=== PATIENT | male | born 1960 | race Caucasian/White ===

== ENCOUNTER 2019-11-07 11:39 | Outpatient (CLI) | payer OTHER, SELFPAY ==
[2019-11-07 13:16] LABS: Add Urine Microscopic? NO; Appearance Urine Clear (Clear); Bilirubin Urine Negative (Negative); Blood Urine Negative (Negative); Color Urine Straw (Yellow); Glucose Urine UA Negative (Negative); Ketones Urine Negative (Negative); Leukocyte Esterase Ur Negative LEU/UL (Negative); Nitrate Urine Negative (Negative); Protein Urine Negative (Negative); Specific Grav Ur 1.009 (1.001-1.035); Urobilinogen Urine Negative mg/dL (<2.0)
[2019-11-07 13:19] LABS: Basophils Percent Auto 0.3 % (0.2-1.2); Eosinophils Absolute Auto 0.2 K/mm3 (0-0.3); Eosinophils Percent Auto 3.1 % (0-4.4); Hematocrit 44.7 % (42.0-52.0); Hemoglobin 14.8 g/dL (14.0-18.0); Immature Granulocyte Absolute 0.02 K/mm3 (0.00-0.031); Immature Granulocyte Percent A 0.3 % (0-0.5); Lymphocytes Absolute Auto 1.76 K/mm3 (0.9-3.2); Lymphocytes Percent Auto 25.7 % (18.3-44.2); Mean Corpuscular HGB Conc 33.1 g/dl (32-36); Mean Corpuscular Hemoglobin 27.9 pg (26-34); Mean Corpuscular Volume 84.2 fl (80-100); Mean Platelet Volume 12.1 fl (7.4-10.4); Monocytes Absolute Auto 0.4 K/mm3 (0.1-0.6); Monocytes Percent Auto 5.4 % (2.6-8.5); Neutrophils Absolute Auto 4.5 K/mm3 (1.3-6.7); Neutrophils Percent Auto 65.2 % (45.5-73.1); Platelet Count Result 176 k/mm3 (150-375); Red Blood Count 5.31 M/mm3 (4.6-6.20); Red Cell Distribution Width 13.9 % (11.5-14.5); White Blood Count 6.9 K/mm3 (4.5-10.0)
[2019-11-07 13:29] LABS: Prothrombin Time 12.6 Seconds (11.1-14.7)
[2019-11-07 13:29] LABS: Albumin Level 4.3 g/dL (3.5-5.1); Blood Urea Nitrogen 12 mg/dL (9-20); Carbon Dioxide 31 mmol/L (22-30); Chloride 98 mmol/L (98-107); Estimated Glomerular Filt Rate > 60; Glucose 109 mg/dL (75-110); Potassium 4.2 mmol/L (3.4-5.0); Sodium 141 mmol/L (137-145)
[2019-11-07 13:30] LABS: Partial Thromboplastin Time 30.9 SECONDS (22.3-36.8)
[2019-11-07 13:36] LABS: Hemoglobin A1C 5.5 % (<5.7)
[2019-11-07 13:45] LABS: Urine Cotinine NEGATIVE
== END 2019-11-07 11:40 | disposition home or self-care (01) ==
LOC: ANHSURGERY 11:44
PROVIDERS: PCP Internal Medicine; Visit Provider Orthopaedic Surgery
DX: M17.12 Unilateral primary osteoarthritis, left knee (principal)
CPT/HCPCS: 36415; 80048; 80307; 81003; 82040; 83036; 85025; 85610; 85730; 86850; 86900; 86901; 87081

== ENCOUNTER 2019-11-16 01:09 | Day surgery (SDC) | payer OTHER, SELFPAY ==
[2019-11-07 12:15] VITALS: BP 150/90; PULSE 58; RESP 20; TEMP 36.3; O2SAT 99; BMI 29.3
[2019-11-16] VITALS (10 sets, daily range): BP systolic 100–146; BP diastolic 44–80; PULSE 53–75; RESP 11–20; TEMP 36.2–36.5; O2SAT 93–98
--- NOTE | ~2019-11-16 | XR_ITS ---
EXAMINATION: XR knee LT 2V DATE: 11/16/2019 13:48 INDICATION: Total left knee arthroplasty. Postop. TECHNIQUE: 2 views of left knee were obtained. COMPARISON: Left knee radiographs 11/07/2019 FINDINGS: There is a total left knee arthroplasty without patellar resurfacing in near-anatomic align ment. No fracture. There is gas in the knee joint and soft tissues, consistent with recent surgery. A nterior skin danyelle are noted. IMPRESSION: 1. Total left knee arthroplasty in near-anatomic alignment. Reviewed, dictated and finalized at location A.
--- NOTE | 2019-11-16 07:27 | WPDHPUPDATE1 ---
History and Physical Update Update Date/Time: 11/16/19 07:27 History and Physical has been reviewed, including an updated exam of the patient. There are NO changes in the patient's condition. Risks, benefits, and alternatives have been discussed and questions answered. Patient agrees to proceed with procedure.
[2019-11-16] MEDS: LACTATED RINGERS 1,000 ML 30 ML IV CONT ×2 (09:30→13:37)
--- NOTE | 2019-11-16 09:40 | WPDANESEPPF ---
Anes - Initial Pre Proc Eval Procedure: Operation Date: 11/16/19 10:30 Proposed Procedures p Left Total Knee Arthroplasty - Gadiel Matt MD Date/Time: 11/16/19 09:40 Surgeon: Gadiel Matt MD Pre Op Diagnosis: Left Knee OA Patient Data Age: 59 Gender: M Height: 1.8 m Weight: 95.4 kg Last Vital Signs Temp 36.3 C L 11/07/19 12:15 Pulse 58 L 11/07/19 12:15 Resp 20 11/07/19 12:15 BP 150/90 H 11/07/19 12:15 Pulse Ox 99 11/07/19 12:15 Allergies Allergy/AdvReac Type Severity Reaction Status Date / Time Cephalosporins Allergy Severe Anaphylactic Verified 11/07/19 12:11 Shock Quinolones Allergy Severe Anaphylactic Verified 11/07/19 12:11 Shock ceftriaxone Allergy Unknown pass out Verified 11/07/19 12:11 levofloxacin Allergy Unknown Swelling Verified 11/07/19 12:11 Sulfa (Sulfonamide AdvReac Unknown PASSES OUT Verified 11/07/19 12:11 Antibiotics) Home Medications Medication Instructions Recorded Confirmed Type pravastatin 10 mg tablet 10 mg PO DAILY #30 tablet 09/13/19 11/07/19 Rx ECG: SR with trigeminy Other Studies: Echo/MUGA:: 09/02/19 CTA of heart at [facility]: Prox LAD with <25% plaque; calcium score is 4. EF 55%. Electrophysiology:: 08/17/19 EKG: Sinus bradycardia at 56 bpm, PVC's. Stress Tests:: 08/24/19 ETT: Modified at 0% grade for 2 min, 30 seconds. He had [address] depression in inferior leads and frequent PAC's. Patient hx anesthesia problems: none Family hx anesthesia problems: none [facility] Social History Social History Smoking status: Never smoker Alcohol intake: current Anes - Eval Final PreProcedure Day of Procedure 11/16/19 09:40 Patient weight: overweight Heart: regular rate and rhythm Lungs: clear to auscultation and normal air movement Airway: Mallampati scale class II Neurological: alert and oriented Last oral intake: >/= 8 hours ASA classification: III Emergent: no Anesthetic plan: proceed Anesthesia type and monitoring: general LMA and standard monitoring Informed Consent: The patient's anesthetic plan and its attendant risks and benefits were discussed with the patient/family/POA. Questions were solicited and answers provided to the satisfaction of the patient/family/POA.
--- NOTE | 2019-11-16 09:42 | WPDANESPNB ---
Anes - Peripheral Nerve Block Date/Time: 11/16/19 09:42 I have discussed with the patient/family/POA the placement of a peripheral nerve block for post-operative pain management, including associated risks, benefits, complications, and side effects. Alternative methods of post-operative analgesia were detailed. Questions were solicited and answers provided to the satisfaction of the patient/family/POA. Time-Out: A pre-procedural Time-Out was completed immediately before starting the procedure and confirmed: Patient Identification, Site, Procedure, Patient Position and the Availability of Requisite Equipment. Clinical Indications: Acute post-operative pain management requested by the operative surgeon. Nerve Block Insertion Note Anes-nerve block: adductor canal left Patient position: supine Skin prep: chlorhexidine Needle: 22 gauge, stimulating, insulated echogenic needle. Needle length: 80 mm Technique: ultrasound Injectate: bupivacaine 0.5% with epi 5 mcg/ml (30cc) Observations: tolerated well Complications: none Procedure start time:: 1035 Procedure end time:: 1038
[2019-11-16] MEDS: TRANEXAMIC ACID 1,000MG/ISO100 1,000 MG/100 ML BAG 200 MG IVPB (09:45)
[2019-11-16] MEDS: IBUPROFEN IV 800 MG/200 ML 800 MG/200 ML BAG 400 MG IVPB (10:20)
[2019-11-16] MEDS: ceFAZolin SODIUM 1 GM VIAL 2 GM IV PUSH (11:12)
--- NOTE | 2019-11-16 13:39 | PM.OP ---
Procedure Note - Brief Procedure Note - Brief Date of procedure: 11/16/19 Pre-op diagnosis: Left Knee OA Post-op diagnosis: same Procedure performed: L TKA Anesthesia: GETA Surgeon: Gadiel Matt MD Estimated blood loss (mL): 100 Complications: No immediate complications Condition: stable Disposition: PACU
[2019-11-16] MEDS: DOCUSATE SODIUM 100 MG CAPSULE PO (17:37)
[2019-11-16] MEDS: CELECOXIB 200 MG CAPSULE PO (17:37)
--- NOTE | 2019-11-16 18:00 | WPDCN ---
Assessment and Plan Assessment and plan (1) Left knee DJD: Qualifiers: Osteoarthritis type: other secondary Qualified Code(s): M17.5 - Other unilateral secondary osteoarthritis of knee Code(s): M17.12 - Unilateral primary osteoarthritis, left knee Status: Acute Assessment and Plan: Postoperative day 0, status post left total knee arthroplasty. Wound care and pain control will be deferred to Dr. Matt. DVT prophylaxis also deferred to Dr. Matt. (2) Dyslipidemia: Code(s): E78.5 - Hyperlipidemia, unspecified Status: Acute Assessment and Plan: Continue statin. (3) Mild sleep apnea: Code(s): G47.30 - Sleep apnea, unspecified Status: Acute Assessment and Plan: Patient may use oral appliance from home. Additional Plan Supervising physician for this medical consultation is Dr. Allie Schroeder. HPI Data of Consult Date/Time: 11/16/19 1900 Requesting Physician: Gadiel Matt MD Primary Care Provider: Simón MckinnonMD Consult Narrative Narrative: Bradley Long is a very pleasant 59-year-old male whom the hospitalist service has been consulted for postoperative medical management. He really does not have any significant medical history aside from osteoarthritis, possible sleep apnea (slightly elevated at risk score on home test) for which he wears an oral appliance, and mild hypertriglyceridemia (he believes is triglyceride levels were 183 on recent labs). Of note, the patient had a cardiac CTA September 02, 2019 which showed plaquing of the proximal LAD, < 25%, with a coronary calcium score of 4 (low risk for heart attack). He has had longstanding pain in his left knee, which has gotten worse since a meniscectomy several years ago. It is to the point where it is now [id number] and he required replacement. His surgery was performed under general anesthesia with no immediate complications documented an estimated blood loss of 100 mLs. At the time my evaluation he is sitting in a chair at the side of the bed and is experiencing minimal discomfort. Apparently he had a regional block as well. He has not had paresthesias, skin color, or temperature changes distal to the surgical site. He also denies postoperative fever, chills, chest pain, shortness of breath, nausea, and vomiting. No history of venous thromboembolism. Review of Systems Review of Systems: Narrative: Twelve systems were reviewed with pertinent positives and negatives as per HPI. No fever, chills, or sweats. No recent cold or flu symptoms. He notes chronic numbness on the left side of his tongue from history of glossopharyngeal nerve compression. Prior to that surgery he did have dysphagia, but since decompression he has not had issues with swallowing. No exertional chest pain or shortness of breath. No history of venous thromboembolism. Except as documented, all other systems were reviewed and are negative. [facility] Past Medical History Medical History (Updated 11/16/19 @ 23:00 by Marry Goldstein PA-C) [place]at[place] coronary artery calcium score less than 100 Cardiac CTA 09/02/2019 showed a calcium score of 4 with an ejection fraction of 55% and < 25% plaquing of the proximal LAD. 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 Headache Hearing loss Mild sleep apnea Home screening several years ago reportedly revealed mild sleep apnea, for which he wears a dental appliance. Osteoarthritis Surgical History Surgical History (Updated 11/16/19 @ 22:57 by Marry Goldstein PA-C) History of arthroscopy of left knee History of foot surgery History of removal of cyst Epidermal inclusion cyst removed from left posterior neck for 2018. History of total left knee replacement 11/16/2019. Family History Family History Other Arthritis Diabetes mellitu
[2019-11-16] MEDS: ceFAZolin 2 GM/D5W 50 ML 2 GM/50 ML BAG IVPB (18:48)
--- NOTE | 2019-11-16 19:11 | OP_ITS ---
DATE OF PROCEDURE: 11/16/2019 PREOPERATIVE DIAGNOSIS: Left knee DJD. POSTOPERATIVE DIAGNOSIS: Left knee DJD. PROCEDURE: Left total knee arthroplasty. ANESTHESIA: General. COMPLICATIONS: None. INDICATIONS: This is a 59-year-old gentleman with advanced arthrosis to the left knee. He has been in severe pain. He had significant deformity and flexion contracture. He is indicated for left total knee arthroplasty. DESCRIPTION OF PROCEDURE: The patient was taken to the operating room in stable condition and placed in supine position. General anesthesia was induced and then, the left lower extremity was prepped and draped sterilely from the toes to the thigh. There was a flexion contracture of approximately 15 degrees and the tourniquet was deflated and then, the incision was made in the midline through the skin down to the subcutaneous tissues and then, a medial parapatellar arthrotomy was performed. Then, there was severe arthrosis to all 3 compartments of the knee joint. An IM tricia was placed in the femur and a distal femoral cut was made removing approximately 11 mm of bone from the high side and a 5 degree valgus cut. The knee then was sized to 67.5 and then, a cutting block was placed in 3 degrees of external rotation and in alignment with Whitesides line and with the transepicondylar axis. Anterior, posterior, and chamfer cuts were made. The cuts were flushed. Next, an IM tricia was placed in the tibia and a transtibial cut was made removing approximately 10 mm of bone from the high side of the tibia. The tibial cut was excellent. It was planed down to a smoother surface. A 79 tibial trial was placed in line with one-third medial aspect of the tibial tubercle. The 4-corner test was performed and there was no incongruity. There was a good flushed surface. The 67.5 femoral trial was then placed and it was flushed with the cut surfaces. Then, a 10 CR poly trial was placed. The knee came out to full extension. The knee eventually was well balanced in both flexion and extension in varus and valgus stress. There was no excessive rollback in flexion. There was good anterior-posterior stability and the patella tracked without any tilt. The trial instrumentation was removed and then, a Biomet 79 mm tibial component and a 67.5 femoral component were both press-fit into the knee. The fit was excellent. The cut surface of bone was flushed with the implants. The 10 CR poly was then placed and the knee came out to full extension. There was no contracture. The knee was well balanced in varus and valgus stress in both flexion and extension. There was good patellar tracking without any tilt. There was no excessive rollback in flexion. Then, the tourniquet was deflated. The bleeders were cauterized and then, the knee joint was washed with approximately 500 cc mixture of Betadine and sterile Betadine sterile water for 3 minutes and it was washed out and then, the arthrotomy was approximated with #1 Vicryl suture, subcutaneous tissues with 2-0 Vicryl, and the skin was approximated with danyelle. Wound was washed and placed in sterile dressing. The patient was extubated and sent to Recovery. Shannan Nubia MT: Charito
[2019-11-16] MEDS: FAMOTIDINE 20 MG TABLET PO (20:01)
[2019-11-17 02:41] VITALS: BP 130/86; PULSE 86; RESP 18; TEMP 36.8; O2SAT 96
[2019-11-17] MEDS: ceFAZolin 2 GM/D5W 50 ML 2 GM/50 ML BAG IVPB ×2 (02:41→11:08)
[2019-11-17 06:00] VITALS: BP 115/67; PULSE 56; RESP 18; TEMP 36.8; O2SAT 96
[2019-11-17 06:32] LABS: Basophils Percent Auto 0.1 % (0.2-1.2); Eosinophils Absolute Auto 0.1 K/mm3 (0-0.3); Eosinophils Percent Auto 0.3 % (0-4.4); Hematocrit 36.2 % (42.0-52.0); Hemoglobin 11.9 g/dL (14.0-18.0); Immature Granulocyte Absolute 0.08 K/mm3 (0.00-0.031); Immature Granulocyte Percent A 0.5 % (0-0.5); Lymphocytes Absolute Auto 1.08 K/mm3 (0.9-3.2); Mean Corpuscular HGB Conc 32.9 g/dl (32-36); Mean Corpuscular Hemoglobin 27.9 pg (26-34); Mean Corpuscular Volume 84.8 fl (80-100); Mean Platelet Volume 12.2 fl (7.4-10.4); Monocytes Absolute Auto 0.9 K/mm3 (0.1-0.6); Neutrophils Absolute Auto 13.3 K/mm3 (1.3-6.7); Neutrophils Percent Auto 86.1 % (45.5-73.1); Platelet Count Result 165 k/mm3 (150-375); Red Blood Count 4.27 M/mm3 (4.6-6.20); Red Cell Distribution Width 13.9 % (11.5-14.5); White Blood Count 15.5 K/mm3 (4.5-10.0)
[2019-11-17 06:48] LABS: Blood Urea Nitrogen 13 mg/dL (9-20); Calcium 8.4 mg/dL (8.4-10.2); Carbon Dioxide 29 mmol/L (22-30); Chloride 100 mmol/L (98-107); Estimated CRCL calculation 74 ml/min; Estimated Glomerular Filt Rate > 60; Glucose 118 mg/dL (75-110); Potassium 4.5 mmol/L (3.4-5.0); Sodium 134 mmol/L (137-145)
[2019-11-17] MEDS: FAMOTIDINE 20 MG TABLET PO (08:33)
[2019-11-17] MEDS: DOCUSATE SODIUM 100 MG CAPSULE PO (08:33)
[2019-11-17] MEDS: PRAVASTATIN SODIUM 10 MG TABLET PO (08:33)
[2019-11-17] MEDS: ASPIRIN 325 MG ENTERIC TABLET 650 MG PO (08:33)
[2019-11-17] MEDS: CELECOXIB 200 MG CAPSULE PO ×2 (08:33→16:31)
--- NOTE | 2019-11-17 10:38 | WPDANESPN ---
Anes - Prog Note Post-Op Date/Time: 11/17/19 10:38 Cardiovascular status: normal Respiratory status: normal Airway patency: baseline Mental status: baseline Post-Op hydration status: normal Vital Signs: Last Vital Signs Temp 36.8 C 11/17/19 06:00 Pulse 56 L 11/17/19 06:00 Resp 18 11/17/19 06:00 BP 115/67 11/17/19 06:00 Pulse Ox 96 11/17/19 06:00 I/O: Intake & Output 11/16/19 11/17/19 11/17/19 23:59 07:59 15:59 Intake Total 300 600 240 Output Total 1100 Balance 300 -500 240 Laboratory Tests 11/17/19 06:13 11/17/19 06:13 11/17/19 11/17/19 06:13 06:13 WBC 15.5 H RBC 4.27 L Hgb 11.9 L Hct 36.2 L MCV 84.8 MCH 27.9 MCHC 32.9 RDW 13.9 Plt Count 165 MPV 12.2 H Immature Gran % (Auto) 0.5 Neut % (Auto) 86.1 H Lymph % (Auto) 7.0 L [place] % (Auto) 6.0 Eos % (Auto) 0.3 Baso % (Auto) 0.1 L Lymph # (Auto) 1.08 [place] # (Auto) 0.9 H Eos # (Auto) 0.1 Baso # (Auto) 0.0 Abs Immat Gran (auto) 0.08 H Absolute Neuts (auto) 13.3 H Absolute Nucleated RBC 0.0 Nucleated RBC % 0.0 Sodium 134 L Potassium 4.5 Chloride 100 Carbon Dioxide 29 BUN 13 Creatinine 1.00 Estim Creat Clear Calc 74 Estimated GFR > 60 Glucose 118 H Calcium 8.4 Post-procedural complaints: none Patient Feedback: Patient satisfied with anesthetic care.
[2019-11-17 14:00] VITALS: BP 141/72; PULSE 66; RESP 14; TEMP 36.6; O2SAT 100
--- NOTE | 2019-11-17 15:39 | PM.IMPN ---
Progress Note: A&P Assessment and Plan (1) Left knee DJD: Qualifiers: Osteoarthritis type: other secondary Qualified Code(s): M17.5 - Other unilateral secondary osteoarthritis of knee Code(s): M17.12 - Unilateral primary osteoarthritis, left knee Status: Acute Assessment and Plan: POD# 1, s/p left total knee arthroplasty by Dr Matt. Wound care, pain control, DVT prophylaxis per the primary service. He is medically stable for discharge from hospitalist standpoint. (2) Dyslipidemia: Code(s): E78.5 - Hyperlipidemia, unspecified Status: Acute Assessment and Plan: Maintained on home statin therapy. (3) Mild sleep apnea: Code(s): G47.30 - Sleep apnea, unspecified Status: Acute Assessment and Plan: Patient may use oral appliance from home. Subjective Date/time seen: 11/16/ 15:15 Interval history: Mr. Long is a 59yo M seen in follow up POD#1 s/p left total knee arthroplasty by Dr Matt. He seems to have tolerated the procedure well and has been working well with therapy. He is in good spirits and hopeful for discharge later today. He is tolerating oral intake without nausea or vomiting. He denies any chest pain or shortness of breath. He notes that his pain is controlled. Review of Systems Review of Systems: Narrative: Twelve systems were reviewed with pertinent positives and negatives as per HPI. Exam Narrative: Exam Narrative: General: Male sitting up in bedside chair in no acute distress. HEENT: Normocephalic, EOMI, oral mucosa moist. Cardiovascular: Rate and rhythm are regular. Respiratory: Lungs clear to auscultation all cain. Non-labored breathing. Abdomen: Soft, non-tender, non-distended, bowel sounds present. Extremities: Left lower extremity neurovascularly intact distal to the surgical site. Aurelio wrap intact to left leg. Neuro: No focal neurological deficits. Speech is clear. Objective Data Vital Signs Vital Signs: Last Vital Signs Temp 97.8 F 11/17/19 14:00 Pulse 66 11/17/19 14:00 Resp 14 11/17/19 14:00 BP 141/72 H 11/17/19 14:00 Pulse Ox 100 11/17/19 14:00 Intake/Output Intake/Output: Intake & Output 11/14/19 11/15/19 11/16/19 11/17/19 23:59 23:59 23:59 23:59 Intake Total 1200 1380 Output Total 1100 Balance 1200 280 Meds/Results Medications: Active Medications Generic Name Dose Route Start Last Admin Trade Name Freq PRN Reason Stop Dose Admin Acetaminophen 1,000 mg 11/16/19 15:22 Tylenol Tablet PO Q6H PRN Mild Pain (1-3) Aspirin 650 mg 11/17/19 09:00 11/17/19 08:33 Aspirin Ec PO 650 mg DAILY VIJAYA Administration Celecoxib 200 mg 11/16/19 17:00 11/17/19 08:33 Celebrex PO 200 mg BIDWM VIJAYA Administration Diazepam 5 mg 11/16/19 15:22 Valium Po PO Q8H PRN Spasms Diphenhydramine HCl 25 mg 11/16/19 15:22 Benadryl Inj IV PUSH Q6H PRN Itching Docusate Sodium 100 mg 11/16/19 17:00 11/17/19 08:33 Colace Capsule PO 100 mg BID VIJAYA Administration Famotidine 20 mg 11/16/19 21:00 11/17/19 08:33 Pepcid PO 20 mg Q12HR VIJAYA Administration Naloxone HCl 0.1 mg 11/16/19 15:22 Narcan IV PUSH Q2M PRN Opiate Reversal Ondansetron HCl 4 mg 11/16/19 15:22 Zofran Inj IV PUSH Q4H PRN Nausea And Vomiting Oxycodone/Acetaminophen 1 tablet 11/16/19 17:00 11/17/19 13:03 Percocet 5-325 Mg PO 11/17/19 17:01 1 tablet Q4HR VIJAYA Administration Pravastatin Sodium 10 mg 11/17/19 09:00 11/17/19 08:33 Pravastatin Sodium PO 10 mg DAILY VIJAYA Administration Radiology Results: ITS Impressions Knee X-Ray 11/16/19 13:52 IMPRESSION: 1. Total left knee arthroplasty in near-anatomic alignment. Labs Labs: Laboratory Tests 11/17/19 06:13 11/17/19 06:13
--- NOTE | 2019-11-17 16:14 | PM.PNORT ---
Progress Note: A&P Additional Plan POD 1 DOING WELL. HE WOULD LIKE TO GO HOME. HE WILL F/U IN 3 WEEKS. Time Spent With Patient Time with patient: 15 - 25 minutes Subjective Subjective Date/Time Seen: 11/17/19 16:14 POD 1 DOING VERY WELL AND HAS PASSED PT. 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[place] INTACT NEG HOM[employer] SIGN Objective Data Vital Signs Vital Signs: Vital Signs - 24 hr 11/16/19 22:00 11/17/19 02:41 11/17/19 06:00 Temperature 36.5 C 36.8 C 36.8 C Pulse Rate 66 86 56 L Respiratory Rate 16 18 18 Blood Pressure 100/44 L 130/86 115/67 Pulse Oximetry 95 96 96 11/17/19 14:00 Temperature 36.6 C Pulse Rate 66 Respiratory Rate 14 Blood Pressure 141/72 H Pulse Oximetry 100 Intake/Output Intake/Output: Intake & Output 11/14/19 11/15/19 11/16/19 11/17/19 23:59 23:59 23:59 23:59 Intake Total 1200 1380 Output Total 1100 Balance 1200 280 Meds/Results Medications: Active Medications Generic Name Dose Route Start Last Admin Trade Name Freq PRN Reason Stop Dose Admin Acetaminophen 1,000 mg 11/16/19 15:22 Tylenol Tablet PO Q6H PRN Mild Pain (1-3) Aspirin 650 mg 11/17/19 09:00 11/17/19 08:33 Aspirin Ec PO 650 mg DAILY VIJAYA Administration Celecoxib 200 mg 11/16/19 17:00 11/17/19 08:33 Celebrex PO 200 mg BIDWM VIJAYA Administration Diazepam 5 mg 11/16/19 15:22 Valium Po PO Q8H PRN Spasms Diphenhydramine HCl 25 mg 11/16/19 15:22 Benadryl Inj IV PUSH Q6H PRN Itching Docusate Sodium 100 mg 11/16/19 17:00 11/17/19 08:33 Colace Capsule PO 100 mg BID VIJAYA Administration Famotidine 20 mg 11/16/19 21:00 11/17/19 08:33 Pepcid PO 20 mg Q12HR VIJAYA Administration Naloxone HCl 0.1 mg 11/16/19 15:22 Narcan IV PUSH Q2M PRN Opiate Reversal Ondansetron HCl 4 mg 11/16/19 15:22 Zofran Inj IV PUSH Q4H PRN Nausea And Vomiting Oxycodone/Acetaminophen 1 tablet 11/16/19 17:00 11/17/19 13:03 Percocet 5-325 Mg PO 11/17/19 17:01 1 tablet Q4HR VIJAYA Administration Pravastatin Sodium 10 mg 11/17/19 09:00 11/17/19 08:33 Pravastatin Sodium PO 10 mg DAILY VIJAYA Administration Radiology Results: ITS Impressions Knee X-Ray 11/16/19 13:52 IMPRESSION: 1. Total left knee arthroplasty in near-anatomic alignment. Labs Labs: Laboratory Results - last 24 hr 11/17/19 11/17/19 06:13 06:13 WBC 15.5 H RBC 4.27 L Hgb 11.9 L Hct 36.2 L MCV 84.8 MCH 27.9 MCHC 32.9 RDW 13.9 Plt Count 165 MPV 12.2 H Immature Gran % (Auto) 0.5 Neut % (Auto) 86.1 H Lymph % (Auto) 7.0 L [place] % (Auto) 6.0 Eos % (Auto) 0.3 Baso % (Auto) 0.1 L Lymph # (Auto) 1.08 [place] # (Auto) 0.9 H Eos # (Auto) 0.1 Baso # (Auto) 0.0 Abs Immat Gran (auto) 0.08 H Absolute Neuts (auto) 13.3 H Absolute Nucleated RBC 0.0 Nucleated RBC % 0.0 Sodium 134 L Potassium 4.5 Chloride 100 Carbon Dioxide 29 BUN 13 Creatinine 1.00 Estim Creat Clear Calc 74 Estimated GFR > 60 Glucose 118 H Calcium 8.4
--- NOTE | 2019-11-17 16:24 | PM.DS ---
DS: Diagnosis Admitting Diagnosis Admitting Diagnosis: Unilateral primary osteoarthritis, left knee DS: Summary Time Spent with Patient Time attestation: Total time spent providing and/or coordinating discharge services: DS: Data Data Completed and Pending Labs on day of discharge: Labs from last 24 hours 11/17/19 11/17/19 06:13 06:13 WBC 15.5 H RBC 4.27 L Hgb 11.9 L Hct 36.2 L MCV 84.8 MCH 27.9 MCHC 32.9 RDW 13.9 Plt Count 165 MPV 12.2 H Immature Gran % (Auto) 0.5 Neut % (Auto) 86.1 H Lymph % (Auto) 7.0 L [place] % (Auto) 6.0 Eos % (Auto) 0.3 Baso % (Auto) 0.1 L Lymph # (Auto) 1.08 [place] # (Auto) 0.9 H Eos # (Auto) 0.1 Baso # (Auto) 0.0 Abs Immat Gran (auto) 0.08 H Absolute Neuts (auto) 13.3 H Absolute Nucleated RBC 0.0 Nucleated RBC % 0.0 Sodium 134 L Potassium 4.5 Chloride 100 Carbon Dioxide 29 BUN 13 Creatinine 1.00 Estim Creat Clear Calc 74 Estimated GFR > 60 Glucose 118 H Calcium 8.4 Discharge Plan Discharge Patient Disposition: Home, Self-Care Discharge Instructions: TAKE ASPIRIN 325 MG 2 TABS PER DAY FOR 2 WEEKS TO PREVENT BLOOD CLOTS. Follow-up/Referrals: Gadiel Matt MD [Physician] - 2 Weeks Discharge Medications: New aspirin 325 mg Tablet,Delayed Release (Dr/Ec) 650 mg PO DAILY Qty: 30 RF: 0 hydrocodone-acetaminophen [[place]] 5-325 mg tablet 1 tablet PO Q6H PRN (Reason: pain) Qty: 60 RF: 0 Continued pravastatin 10 mg tablet 10 mg PO DAILY Qty: 30 RF: 5
== END 2019-11-17 17:40 | disposition home or self-care (01) ==
LOC: ANHSURGERY 08:29 → ANH3MEDSUR 17:05
PROVIDERS: PCP Internal Medicine; Visit Provider Orthopaedic Surgery
PROC: (CPT 27447; principal; 2019-11-16 10:30)
DX: M17.12 Unilateral primary osteoarthritis, left knee (principal); G89.18 Other acute postprocedural pain; E78.5 Hyperlipidemia, unspecified; G47.30 Sleep apnea, unspecified
CPT/HCPCS: 27447; 64447; 36415; 73560; 80048; 85025; 97110; 97116; 97161; 97165; A9270; C1713; C1776; J0171; J0690; J1100; J1741; J2250; J2270; J2405; J2704; J2795; J3010; J3370; J7120

== ENCOUNTER → 2020-06-20 07:02 | Outpatient (CLI) | payer OTHER, SELFPAY ==
--- NOTE | ~2020-06-20 | MR_ITS ---
EXAMINATION: MR lumbar spine wo con DATE: 06/20/2020 07:42 INDICATION: Paresthesias of both legs. Low back pain. TECHNIQUE: Magnetic resonance imaging (MRI) of the lumbar spine was performed without intravenous con trast. Sequences included sagittal T2-weighted FSE, sagittal T2-weighted FS FSE, sagittal T1-weighted FSE, and axial T2-weighted FSE. COMPARISON: None FINDINGS: There is 3 mm anterolisthesis of L4 on L5. Vertebral body heights are normal. There is mild ly decreased disc height at L1-L2, L2-L3, and L4-L5. The distal spinal cord signal intensity is chelle l. The conus medullaris is at T12-L1. The following disc levels are specifically discussed: L1-L2: The disc is bulging and has an annular fissure. There is mild bilateral facet joint osteoarthr itis. There is mild bilateral neural foraminal stenosis. There is mild central canal stenosis. L2-L3: The disc is bulging and has an annular fissure. There is severe right and moderate left facet joint osteoarthritis. There is mild bilateral neural foraminal stenosis. There is mild central canal stenosis. L3-L4: The disc does not extend beyond the endplate margin. There is moderate right and mild left fac et joint osteoarthritis. There is no neural foraminal stenosis. There is no central canal stenosis. L4-L5: The disc is bulging and has an annular fissure. There is severe bilateral facet joint osteoart hritis. There is mild bilateral neural foraminal stenosis. There is moderate central canal stenosis. L5-S1: There is a central protrusion. There is severe bilateral facet joint osteoarthritis. There is mild bilateral neural foraminal stenosis. There is mild central canal stenosis. IMPRESSION: 1. Moderate lumbar spondylosis. Reviewed, dictated and finalized at location A.
== END ==
PROVIDERS: PCP Internal Medicine; Visit Provider Internal Medicine
DX: R20.2 Paresthesia of skin (principal); M54.5 Low back pain; M47.816 Spondylosis without myelopathy or radiculopathy, lumbar region
CPT/HCPCS: 72148

== ENCOUNTER 2024-04-04 09:44 | Outpatient (CLI) | payer OTHER, SELFPAY ==
--- NOTE | ~2024-04-04 | MR_ITS ---
MRI of the right knee Clinical history: Pain Technique: Coronal proton density and proton density-weighted images, sagittal proton-density and T2 fat-sat images, and axial proton-density fat-saturated images were acquired. Findings: Anterior and posterior cruciate ligaments are intact. Medial collateral ligament and the la teral collateral ligament complex are intact. Popliteus tendon is intact. There is extensive complex tearing of the posterior horn and body of the medial meniscus. Suggestion of flipped fragment towards the medial gutter inferiorly. No lateral meniscal tear seen. There is a p robable associated para meniscal cyst medially measuring 1.5 cm in axial diameter (coronal image 11). There is grade 4 chondral malacia of the lateral patellar facet. There is mild chondral malacia the f emoral trochlea. There is extensive moderate chondromalacia the medial femoral condyle. There is a cy stic enthesopathic change at the great posterior cruciate ligament insertion at the proximal tibia. T here is small ganglion cyst posterior to the PCL. Extensor mechanism is intact. Minimal joint effusion present. No Georges's cyst. Impression: Complex tearing of the posterior horn and body of medial meniscus, with 1.5 cm medial para-meniscal c yst. Chondromalacia, especially the patella and medial femoral condyle, as detailed above. Small ganglion cyst posterior to the PCL. Reviewed, dictated and finalized at location M. Impression: Complex tearing of the posterior horn and body of medial meniscus, with 1.5 cm medial para-meniscal cyst. Chondromalacia, especially the patella and medial femoral condyle, as detailed above. Small ganglion cyst posterior to the PCL.
== END 2024-04-04 09:45 ==
LOC: GOSHIMG 09:45
PROVIDERS: PCP Physician Assistant Medical; Visit Provider Orthopaedic Surgery
DX: S83.231A Complex tear of medial meniscus, current injury, right knee, initial encounter (principal); M23.021 Cystic meniscus, posterior horn of medial meniscus, right knee; M22.41 Chondromalacia patellae, right knee; M67.461 Ganglion, right knee; M25.561 Pain in right knee
CPT/HCPCS: 73721

== ENCOUNTER 2025-07-14 02:45 | Emergency (ER) | payer MEDICARE, SELFPAY ==
[2025-07-14] VITALS (11 sets, daily range): BP systolic 136–183; BP diastolic 88–112; PULSE 48–62; RESP 8–17; TEMP 36.6; O2SAT 98–100
--- NOTE | ~2025-07-14 | XR_ITS ---
Examination: XR chest 1V portable Clinical History: cp SOB Comparison: None Technique: Portable AP Findings: Heart size upper limit of normal. Lungs clear. No acute bony abnormality. IMPRESSION: 1. No acute cardiopulmonary findings given portable technique. Reviewed, dictated and finalized at location R. [facility]
--- NOTE | 2025-07-14 02:51 | ECG_ITS ---
Test Date: 2025-07-14 03:02:40 Measurements Intervals [place] Rate: 58 P: 70 DE: 198 QRS: 73 QRSD: 104 T: 63 QT: 412 QTc: 406 Interpretive Statements SINUS BRADYCARDIA WITH FREQUENT VENTRICULAR PREMATURE COMPLEXES LEFT ATRIAL ENLARGEMENT Electronically Signed On 07-14-2025 10:04:02 MAKE UP ARTIST by Joaquin Crawford D.O
[2025-07-14 03:17] LABS: Hematocrit 45.8 % (42.0-52.0); Hemoglobin 15.0 g/dL (14.0-18.0); Immature Granulocyte Percent A 0.4 % (0-0.5); Lymphocytes Absolute Auto 2.08 K/mm3 (0.9-3.2); Mean Corpuscular HGB Conc 32.8 g/dl (32-36); Mean Corpuscular Hemoglobin 26.8 pg (26-34); Mean Corpuscular Volume 81.9 fl (80-100); Nucleated Red Blood Cells Absolute Auto 0.000 K/mm3 (0.0-0.012); Nucleated Red Blood Cells Perc 0.0 % (0.0-0.2); Platelet Count Result 164 k/mm3 (150-375); Red Blood Count 5.59 M/mm3 (4.6-6.20); White Blood Count 7.7 K/mm3 (4.5-10.0)
[2025-07-14 03:32] LABS: INR 1.0; Prothrombin Time 13.7 Seconds (11.1-14.7)
[2025-07-14 03:33] LABS: Partial Thromboplastin Time 39.6 Seconds (22.3-36.8)
[2025-07-14 03:37] LABS: Alanine Aminotransferase 20 U/L (6-50); Albumin Level 4.5 g/dL (3.5-5.1); Alkaline Phosphatase 76 U/L (38-126); Anion Gap 7 mmol/L (4-12); Aspartate Amino Transferase 26 U/L (17-59); Bilirubin,Total 0.9 mg/dL (0.2-1.3); Blood Urea Nitrogen 17 mg/dL (9-20); Calcium 9.2 mg/dL (8.4-10.2); Carbon Dioxide 29 mmol/L (22-30); Chloride 101 mmol/L (98-107); Estimated CRCL calculation 62 ml/min; Estimated Glomerular Filt Rate > 60; Glucose 95 mg/dL (65-110); Lipase 101 U/L (23-300); Potassium 4.4 mmol/L (3.4-5.0); Sodium 137 mmol/L (137-145); Total Protein 7.7 g/dL (6.3-8.2)
[2025-07-14 03:43] LABS: Troponin I < 0.012 ng/mL (0.000-0.034)
--- OUTSIDE RECORDS SUMMARY | 2025-07-14 04:04 | XMS_ITS | Encounter Summary ---
Author Organization [facility] Address [facility] [place] [address] Care Team Providers Care Roustabout Name Role Phone Simón Mckinnon MD Primary Care Provider [phone] Ce Barakat PA-C Primary Care Provider [phone] Encounter Details Date Type Department Care Team (Late st Contact Info) Description 08/29/2016 Abstract [facility] CONVERSION [address] [place], [place] [id number] , Generic ConversionMD Social History Tobacco Use Types Packs/Day Years Used Date Smoking Tobacco: Never Assessed Sex and Gender Information Value Date Recorded Sex Assigned at Male 05/11/2019 3:45 PM CDT Legal Sex Male 4:34 PM CDT Gender Identity Male 05/11/2019 3:45 PM CDT Sexual Orientation Straight 05/11/2019 3: 45 PM CDT documented as of this encounter Plan of Treatment Upcoming Encounters Date Type Department Care Team (Late Contact Info) Description 07/20/2025 2:10 PM TRANSPORTATION ENGINEERING TECHNICIAN Telephone [facility] [address] Ce Barakat PA-C [address] [place], [place] [address] [place] [address] 07/24/2025 9:15 AM TRANSPORTATION ENGINEERING TECHNICIAN Office Visit [facility] [address] [place] [address] Ramsey Larson MD [address] [address] documented as of this encounter Visit Diagnoses Not on filedocumented in this encounter Additional Health Concerns Infection Onset Date Last Indicated Resolved Time COVID-19 Rule Out 04/30/2023 04/30/2023 04/30/2023 9:02 AM CDT COVID-19 Rule Out 04/30/2023 04/30/2023 04/30/2023 1:46 PM CDT documented as of this encounter Care Teams Roustabout Relationship Specialty Start Date End Date Simón Mckinnon MD [address] [place] [id number] PCP - General INTERNAL MEDICINE 04/19/19 06/15/24 Ce Barakat PACherelleC [address] [place], [place] [address] [place] [address] PCP - General PHYSICIAN FORENSIC PSYCHOLOGIST 06/16/24 documented as of this encounter
--- OUTSIDE RECORDS SUMMARY | 2025-07-14 04:04 | XMS_ITS | Encounter Summary ---
Author Organization [facility] Address [facility] [place] [address] Care Team Providers Care Logistics Loss Prevention Manager Name Role Phone Simón Mckinnon MD Primary Care Provider [phone] Ce Barakat PA-C Primary Care Provider [phone] Encounter Details Date Type Department Care Team (Late st Contact Info) Description 03/06/2014 Abstract [facility] CONVERSION [address] [place], [place] [id number] , Generic Conversion, Social History Tobacco Use Types Packs/Day Years [...] (Late Contact Info) Description 07/20/2025 2:10 PM FOREIGN CORRESPONDENT Telephone [facility] [address] Ce Barakat PA-C [address] [place], [place] [address] [place] [address] 07/24/2025 9:15 AM FOREIGN CORRESPONDENT Office Visit [facility] [address] [place] [address] Ramsey Larson MD [address] [address] documented as of this encounter Visit Diagnoses Not on filedocumented in this encounter Additional Health Concerns Infection Onset Date Last Indicated Resolved Time COVID-19 Rule Out 04/30/2023 04/30/2023 04/30/2023 9:02 AM CDT COVID-19 Rule Out 04/30/2023 04/30/2023 04/30/2023 1:46 PM CDT documented as of this encounter Care Teams Logistics Loss Prevention Manager Relationship Specialty Start Date End Date Simón Mckinnon MD [address] [place] [address] PCP - General INTERNAL MEDICINE 04/19/19 06/15/24 Ce Barakat PACherelleC [address] [place], [place] [address] [place] [address] PCP - General PHYSICIAN EP TECHNOLOGIST 06/16/24 documented as of this encounter
--- OUTSIDE RECORDS SUMMARY | 2025-07-14 04:04 | XMS_ITS | Clinical Summary ---
Author Organization [facility] Address [address] [place] [address] Care Team Providers Care Casing Sewer Name Role Phone Ce Barakat PA-C Primary Care Provider [phone] Allergies Active Allergy Reactions Criticality Noted Date Comments Ceftriaxone Unknown 07/08/2013 Clarithromycin Unknown 09/02/2019 Levofloxacin Unknown 07/08/2013 Sulfa Antibiotics Other (see comment),Syncope 0 02/01/2015 Medications Multiple Vitamins-Minera ls (PRESERVISION AREDS 2) Cap Take 1 tablet by mouth daily. Active pravastatin 10 MG tablet Take 1 tablet (10 mg total) by mouth nightly at bedtime. 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 Immunity status testing 08/28/2015 Cough 09/29/2014 Abdominal pain of multiple sites 05/25/2014 Diarrhea 05/25/2014 Resolved Problems Problem Noted Date Diagnosed Date Resolved Date Pre-operative exam 07/08/2013 Encounter for preventive health examination 07/04/2013 03/06/2025 Encounters Date Type Department Care Team Description 07/05/2025 Orders Only [facility] [address] [address] Ce Barakat PA-C from Last 3 Months Immunizations Immunization Administration Dates Next Due Influenza (Generic) 06/07/2020 Influenza Adult (Generic) 07/11/2022,08/08/2021, 05/13/2020 Pneumococcal (Pneumovax 23) 05/13/2020 Pneumococcal (Prevnar 13) 06/21/2021 Shingrix 08/16/2020,04/27/2020 Tdap (Boostrix) 03/11/2024 Family History Medical History Relation Comments Asthma Brother 1 Diabetes Brother 1 Diabetes Brother 2 Cancer Father Diabetes Father Heart Disease Father Hypertension Father Alzheimers Mother Diabetes Mother Hypertension Mother Relation Status Comments Brother 1 Alive Brother 2 Alive Father Mother Social History Tobacco Use Types Packs/Day Years Used Date Smoking Tobacco: Never Smokeless Tobacco: Never Tobacco Cessation:Counseling Given: No Alcohol Use Standard Drinks/Week Comments Yes 0 (1 standard drink = 0.6 oz pur e alcohol) rarely AUDIT-C Answer Date Recorded Frequency of Alcohol Consumption 2-4 times a thu05/11/2019 Average Number of Drinks Not on file 019 Frequency of Binge Drinking Not on file 12/2018 PHQ-2 Answer Date Recorded Patient Health Questionnaire-2 Score 0 03/02/2025 Sex and Gender Information Value Date Recorded Sex Assigned at Male 05/11/2019 3:45 PM CDT Legal Sex Male 4:34 PM CDT Gender Identity Male 05/11/2019 3:45 PM CDT Sexual Orientation Straight 05/11/2019 3: 45 PM CDT Last Filed Vital Signs Vital Sign Reading Time Taken Comments Blood Pressure 105/74 03/02/2025 2:22 PM CDT Pulse 55 03/02/2025 2:22 PM CDT Temperature 36.5 C (97.7 F) 03/02/2025 2:22 PM CDT Respiratory Rate 20 03/02/2025 2:22 PM CDT Oxygen Saturation 99% 03/02/2025 2:22 PM CDT Inhaled Oxygen Concentration - - Weight 94.7 kg (208 lb 12.8 oz) 03/02/2025 2:22 PM CDT Height 177.8 cm (5' 10) 03/02/2025 2:22 PM CDT Body Mass Index 29.96 03/02/2025 2:22 PM CDT Plan of Treatment Upcoming Encounters Date Type Department Care Team (Late st Contact Info) Description 07/20/2025 2:10 PM OYSTER FARMER Telephone [facility] [address] [place], [place] [id number] Ce Barakat PA-C [address] [place] [address] 07/24/2025 9:15 AM OYSTER FARMER Office Visit [facility] [address] [place] [phone] Ramsey Larson MD [facility] [address] [place], [place] [id number] Health Maintenance Due Date Last Done Comments Hepatitis C 1978 COVID-19 Vaccine ( - season) 2025 09/04/2021, 11/24/2020, 11/03/2020 Influenza Adult (#1) 2025 07/11/2022, 08/08/2021, 06/07/2020, Additional history exists Pneumococcal Vaccine: 50+ Years (3 of 3 - PCV20 or PCV21) 06/21/2026 06/21/2021, 05/13/2020 Colorectal Cancer Screening Colonoscopy (10 Years) 07/17/2031 07/17/2021 DTaP, Tdap and Td Vaccines (2 - Td or Tdap) 03/11/2034 03/11/2024 RSV Immunization or 60+ Years (1 - 1-dose 75+ series) 2034 Zoster Vaccines Completed 08/16/2020, 04/27/2020 PHQ-2 (Physician [place]) Completed 03/02/2025 Hepatitis A Vaccines Aged Out No long er eligible based on patient's age to complete this topic Meningococcal B Vaccine Aged Out No l onger eligible based on patient's age to complete this topic Meningococcal Vaccine Aged Out No elmo kaylen eligible based on patient's age to complete this topic RSV Immunizations Under 20 Months Aged Out No longer eligible based on patient's age to complete this topic Insurance [facility] AETNA MEDICARE Care Teams Casing Sewer Relationship Specialty Start Date End Date Ce Barakat PA-C [address] [place], [place] [address] [place] [address] PCP - General PHYSICIAN TECHNICAL SERVICES MANAGER 06/16/24
[2025-07-14 04:49] LABS: NT Pro B Type Natriuretic Pept 346 pg/mL (19.9-100)
--- NOTE | 2025-07-14 05:18 | ED_ITS ---
HPI - General Adult General Chief complaint: Arrhythmia/Palpitations Stated complaint: palpations Time Seen by Provider: 07/14/25 03:34 History of Present Illness HPI narrative: This is a 64-year-old male presenting ED with chief complaint palpitations. Patient says he has been intermittent palpitations feel like his heart is skipping beat or that his heart is beating too hard over the last several weeks. It is worse at night. He says it is associated with shortness of breath when asked he has been having shortness of breath that is gradually worse over the last 2 months. He does not have any swelling of his legs. He does not have any fevers or productive cough. No chest pain. No flu-like symptoms. Patient's daughter was recently diagnosed with CML and this is causing a significant amount of emotional distress with the patient. Related Data Home Medications ?Medication ?Instructions ?Recorded ?Confirmed ?Last Taken ?Type vitamins A,C,T-nakm-owgare 4,296 1 cap PO BID 11/11/22 06/30/25 Unknown History mcg-226 mg-90 mg capsule (PreserVision AREDS) cyanocobalamin (vitamin B-12) 500 500 mcg PO BID 08/0906/30/25 Unknown History mcg tablet (Vitamin B-12) ferrous sulfate 27 mg iron tablet 27 mg PO .qod 06/30/25 Unknown History Allergies Allergy/AdvReac Type Severity Reaction Status Date / Time Cephalosporins Allergy Severe Anaphylactic Verified 07/14/25 03:01 Shock Quinolones Allergy Severe Anaphylactic Verified 07/14/25 03:01 Shock ceftriaxone Allergy Unknown pass out Verified 07/14/25 03:01 levofloxacin Allergy Unknown Swelling Verified 07/14/25 03:01 Sulfa (Sulfonamide AdvReac Unknown PASSES OUT Verified 07/14/25 03:01 Antibiotics) [facility] Past Medical History Medical History Acute medial meniscal injury of right knee Osteoarthritis Glossopharyngeal neuralgia Status post decompression in December 2016 at [place]. [place] coronary artery calcium score less than 100 Cardiac CTA 09/02/2019 showed a calcium score of 4 with an ejection fraction of 55% and < 25% plaquing of the proximal LAD. Mild sleep apnea Home screening several years ago reportedly revealed mild sleep apnea, for which he wears a dental appliance. Hearing loss Headache Dyslipidemia Surgical History Surgical History Previous back surgery (2020) History of knee replacement procedure of left knee 2019 History of removal of cyst Epidermal inclusion cyst removed from left posterior neck for 2018. History of total left knee replacement 11/16/2019. History of arthroscopy of left knee (11/2019) History of foot surgery Family History Family History Father Diabetes mellitus Heart disease Mother Diabetes mellitus Sibling Asthma Cancer Diabetes mellitus Leukemia Other Arthritis Family history of cardiovascular disease Family history of malignant neoplasm Hypertension Social History Social History Social History: The patient is and lives in [place], [place] with his . He is a lifelong nonsmoker and denies alcohol and drug abuse. He designates his , Olivia, as his surrogate decision maker and he wishes to be a full code. 07/15/24 very confident with medical forms Alcohol intake: current Alcohol use details: 1-3 per month; beer and whiskey Substance use: never Substance use type: does not use Do You Feel Safe in your Home?: Yes Lack of Transportation: No Lack of Food: Never True Current Housing: I Have Housing Concerned About Future Housing: No Difficulty Paying Gas/Electric Bills: No Difficulty Paying for Meds: No Currently Unemployed: No Education: Trade/Vocational Certificate Difficulty w/ Childcare or Family Care: No Living arrangements: with family Occupation/Education: occupation Additional occupation/education comments: Maintenance at [employer] Gender identity (if verbalized by the patient): Male Spiritual care concerns: No Agree to blood products: Yes Exam 2 Narrative: APPEARANCE: No apparent distress. Head: atraumatic. EYES: EOMI, NOSE: Atraumatic NECK: Trachea midline RESPIRATORY: No increased rate of breathing clear to auscultation CARDIOVASCULAR: Irregular, no peripheral edema, frequent PVCs on radiation monitor Point of care cardiothoracic ultrasound showed a normal EF ABDOMINAL: Non-distended MUSCULOSKELETAl: No obvious deformities NEURO: Alert. Moving 4/4 extremities SKIN:: Warm, dry. Normal color PSYCHIATRIC: Normal affect Course Vital Signs Vital signs: Vital Signs Temperature 98 F 07/14/25 02:52 Pulse Rate 53 L 07/14/25 02:52 Respiratory Rate 12 07/14/25 02:52 Blood Pressure 183/112 H 07/14/25 02:52 Pulse Oximetry 100 07/14/25 02:52 Temperature 98 F 07/14/25 02:52 Pulse Rate 51 L 07/14/25 04:15 Respiratory Rate 13 07/14/25 04:15 Blood Pressure 136/94 H 07/14/25 04:01 Pulse Oximetry 100 07/14/25 04:15 Medical Decision Making [facility] Narrative Medical decision making narrative: -Course: 64-year-old male presenting with palpitations for 2 weeks and shortness of breath gradually worsened over last 2 months. Patient's vital signs are stable, he is speaking in full sentences, his oxygen saturation is 100% on room air. Patient is still exercising on a daily basis although he feels his exercise tolerance has decreased. Patient's workup was unremarkable. Laboratory studies within normal limits. Troponins negative x2. BNP 346. D- dimer undetectable. EKG showed sinus bradycardia with frequent PVCs. Chest x- ray did not show any acute cardiopulmonary process. Results were discussed with the patient at length. Patient will be discharged follow-up with primary care physician for further management. Given return precautions. -DDX includes but is not limited to: CHF, ACS, pneumonia, COPD, PE, stress reaction Vital Signs Vital Signs: Vital Signs Temperature 98 F 07/14/25 02:52 Pulse Rate 53 L 07/14/25 02:52 Respiratory Rate 12 07/14/25 02:52 Blood Pressure 183/112 H 07/14/25 02:52 Pulse Oximetry 100 07/14/25 02:52 Temperature 98 F 07/14/25 02:52 Pulse Rate 51 L 07/14/25 04:15 Respiratory Rate 13 07/14/25 04:15 Blood Pressure 136/94 H 07/14/25 04:01 Pulse Oximetry 100 07/14/25 04:15 Lab Data 07/14/25 03:10 07/14/25 03:10 Labs: Lab Results 07/14/25 07/14/25 Range/Units 03:06 03:10 WBC 7.7 (4.5-10.0) K/mm3 RBC 5.59 (4.6-6.20) M/mm3 Hgb 15.0 D (14.0-18.0) g/dL Hct 45.8 (42.0-52.0) % MCV 81.9 (80-100) fl MCH 26.8 (26-34) pg MCHC 32.8 (32-36) g/dl RDW 14.9 H (11.5-14.5) % Plt Count 164 (150-375) k/mm3 MPV 11.2 H (7.4-10.4) fl Immature Gran % (Auto) 0.4 (0-0.5) % Neut % (Auto) 61.6 (45.5-73.1) % Lymph % (Auto) 26.9 (18.3-44.2) % Barnes % (Auto) 7.5 (2.6-8.5) % Eos % (Auto) 3.1 (0-4.4) % Baso % (Auto) 0.5 (0.2-1.2) % Lymph # (Auto) 2.08 (0.9-3.2) K/mm3 Barnes # (Auto) 0.6 (0.1-0.6) K/mm3 Eos # (Auto) 0.2 (0-0.3) K/mm3 Baso # (Auto) 0.0 (0.0-0.1) K/mm3 Abs Immat Gran (auto) 0.03 (0.00-0.031) K/mm3 Absolute Neuts (auto) 4.8 (1.3-6.7) K/mm3 Absolute Nucleated RBC 0.000 (0.0-0.012) K/mm3 Nucleated RBC % 0.0 (0.0-0.2) % PT 13.7 (11.1-14.7) Seconds INR 1.0 APTT 39.6 H (22.3-36.8) Seconds D-Dimer < 0.27 (<0.48) ug/mL Sodium 137 (137-145) mmol/L Potassium 4.4 (3.4-5.0) mmol/L Chloride 101 (98-107) mmol/L Carbon Dioxide 29 (22-30) mmol/L Anion Gap 7 (4-12) mmol/L BUN 17 (9-20) mg/dL Creatinine 1.08 (0.7-1.3) mg/dL Estim Creat Clear Calc 62 ml/min Estimated GFR > 60 (59 - ) Glucose 95 (65-110) mg/dL Calcium 9.2 (8.4-10.2) mg/dL Total Bilirubin 0.9 (0.2-1.3) mg/dL AST 26 (17-59) U/L ALT 20 (6-50) U/L Alkaline Phosphatase 76 (38-126) U/L Troponin I < 0.012 (0.000-0.034) ng/mL NT-Pro-B Natriuret Pep 346 H (19.9-100) pg/mL Total Protein 7.7 (6.3-8.2) g/dL Albumin 4.5 (3.5-5.1) g/dL Lipase 101 (23-300) U/L Discharge Plan Discharge Clinical Impression: Frequent PVCs, Dyspnea Patient Disposition: Home Condition: Stable Instructions: Antibiotic Form, Dyspnea (ED) Additional Instructions: You were seen in the emergency department for palpitations. You are having frequent PVCs. Please follow-up with your primary care physician for further management. If you develop chest pain, shortness of breath or any new or worsening symptoms return to the ED for re-evaluation. Patient Language: Chadian Prescriptions: No Action pravastatin 10 mg tablet 10 mg PO QHS Qty: 90 3RF PreserVision AREDS 4,296 mcg-226 mg-90 mg capsule 1 cap PO BID ferrous sulfate 27 mg iron tablet 27 mg PO .qod cyanocobalamin (vitamin B-12) [Vitamin B-12] 500 mcg tablet 500 mcg PO BID meloxicam 15 mg tablet 15 mg PO DAILY Qty: 90 0RF Rx Instructions: with food Follow-up/Referrals: Ce Barakat PA-C [Primary Care Provider, Family Practice] - 3 Days Referral Note: palpitations
== END 2025-07-14 05:32 | disposition home or self-care (01) ==
PROVIDERS: Emergency Provider Emergency Medicine; PCP Physician Assistant Medical
DX: I49.3 Ventricular premature depolarization (principal); R06.02 Shortness of breath; E78.5 Hyperlipidemia, unspecified; M19.90 Unspecified osteoarthritis, unspecified site; G47.30 Sleep apnea, unspecified; Z96.652 Presence of left artificial knee joint; Z79.899 Other long term (current) drug therapy
CPT/HCPCS: 36415; 71045; 80053; 83690; 83880; 84484; 85025; 85380; 85610; 85730; 93005; 99284